=== PATIENT | female | born 1975 | race Two or more races ===

== ENCOUNTER 2017-09-17 13:36 | Emergency (ER) | payer OTHER ==
[~2017-09-17] VITALS: Ht 165.1 cm; Wt 72.6 kg
[2017-09-17] MEDS ORDERED: CLONAZEPAM2 MG (13:50)
== END 2017-09-17 19:21 | disposition home or self-care (01) ==
LOC: ER 13:36
DX: S90.31XA Contusion of right foot, initial encounter (principal); S93.401A Sprain of unspecified ligament of right ankle, initial encounter; W18.39XA Other fall on same level, initial encounter; Y93.89 Activity, other specified; Y92.89 Other specified places as the place of occurrence of the external cause; Y99.8 Other external cause status

== ENCOUNTER → 2017-11-20 | Emergency (ER) | payer OTHER ==
[~2017-11-20] VITALS: Ht 165.1 cm; Wt 63.5 kg
[~2017-11-20] MED LIST: CLONAZEPAM2 MG; CLONAZEPAM2 MG PO; KETO10TA2 PO
== END | disposition home or self-care (01) ==
LOC: ER 08:18
DX: K59.09 Other constipation (principal); R10.31 Right lower quadrant pain

== ENCOUNTER 2020-10-22 08:44 | Emergency (ER) | payer OTHER ==
[~2020-10-22] VITALS: Ht 152.4 cm; Wt 81.6 kg
== END 2020-10-22 09:35 | disposition home or self-care (01) ==
LOC: ER 08:44
DX: F41.0 Panic disorder [episodic paroxysmal anxiety] (principal)

== ENCOUNTER 2022-07-19 15:11 | Emergency (ER) | payer OTHER ==
[~2022-07-19] VITALS: Ht 165.1 cm; Wt 87.5 kg
== END 2022-07-19 19:05 | disposition home or self-care (01) ==
LOC: ER 15:11
DX: J06.9 Acute upper respiratory infection, unspecified (principal); Z88.2 Allergy status to sulfonamides

== ENCOUNTER 2024-07-12 21:33 | Emergency (ER) | payer OTHER ==
[~2024-07-12] VITALS: Ht 165.1 cm; Wt 87.1 kg
[2024-07-12 23:16] LABS: BASO % 0.5 % (0.1-1.2); EOS # 0.19 (0.04-0.54); EOS % 2.6 % (0.7-7.0); HEMATOCRIT 37.2 % (34.1-44.9); HEMOGLOBIN 12.6 g/dL (11.2-15.7); LYMPH # 1.96 (1.18-3.74); LYMPH % 26.6 % (19.3-53.1); MEAN CORPUSCULAR HEMOGLOBIN 29.6 pg (25.6-32.2); MONO # 0.46 (0.24-0.82); MONO % 6.2 % (4.7-12.5); NEUT % 63.8 % (34.0-71.1); PLATELET COUNT 307 K/uL (163-369); RED BLOOD COUNT 4.25 M/uL (3.93-5.22)
[2024-07-12 23:37] LABS: CALCIUM 9.3 mg/dL (8.5-10.1); CREATININE SERUM 0.88 mg/dL (0.55-1.02); GFR 69.18; POTASSIUM 4.24 mEq/L (3.5-5.1)
[2024-07-13 00:41] LABS: URINE APPEARANCE Clear; URINE BILIRRUBIN Negative (NEGATIVE); URINE BLOOD Negative; URINE COLOR Yellow; URINE GLUCOSE Negative (NEGATIVE); URINE KETONE Negative (NEGATIVE); URINE LEUKOCYTE Negative; URINE NITRATE Negative; URINE PROTEIN Negative (NEGATIVE); URINE UROBILINOGEN 0.2 E.U./dl
[2024-07-13 00:44] LABS: URINE WBC 3.7 uL (0.0-23.2)
[2024-07-13 00:46] LABS: URINE BACTERIA 0 uL (0.0-1933); URINE EPITHELIAL CELLS 0.6 uL (0.0-38.8)
== END 2024-07-13 01:46 | disposition home or self-care (01) ==
LOC: ER 21:34
PROVIDERS: General Practice
DX: M54.50 Low back pain, unspecified (principal); R10.2 Pelvic and perineal pain; Z88.2 Allergy status to sulfonamides

== ENCOUNTER 2024-08-26 23:04 | Emergency (ER) | payer OTHER ==
[~2024-08-26] VITALS: Ht 165.1 cm; Wt 88.9 kg
[2024-08-27] MEDS ORDERED: TETANUS & DIPHTHERIA TOX,ADULT 0.5 ML VIAL IM STA (02:26)
[2024-08-27] MEDS ORDERED: CEFAZOLIN SODIUM 1,000 MG VIAL ONE (02:27)
[2024-08-27] MEDS ORDERED: DIPHTH,PERTUSS(ACELL),TET VAC 0.5 ML SYRINGE IM ONE (02:27)
[2024-08-27] MEDS ORDERED: CEFAZOLIN SODIUM 1,000 MG VIAL IM STA (02:27)
[2024-08-27] MEDS ORDERED: LIDOCAINE HCL 1% 10ML VIAL ONE (02:28)
== END 2024-08-27 02:44 | disposition home or self-care (01) ==
LOC: ER 23:04
DX: S60.412A Abrasion of right middle finger, initial encounter (principal); X58.XXXA Exposure to other specified factors, initial encounter; Y93.89 Activity, other specified; Y92.89 Other specified places as the place of occurrence of the external cause; Y99.8 Other external cause status; Z88.2 Allergy status to sulfonamides
CPT/HCPCS: 90471; 90714; J1670

== ENCOUNTER → 2025-02-03 | Emergency (ER) | payer OTHER | END | disposition left against medical advice (07) | LOC: ER 01:26 | DX: Z53.21 Procedure and treatment not carried out due to patient leaving prior to being seen by health care provider (principal) ==